=== PATIENT | male | born 1975 | race Caucasian/White ===

== ENCOUNTER 2019-09-01 17:39 | Emergency (ER) | payer OTHER, SELFPAY ==
--- NOTE | 2019-09-01 17:45 | ED.UPPEXIN ---
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 Patient states he sustained a laceration to the tip of his left index finger a couple hours ago while using a shuttlecock feather trimmer. Symptoms are mild, worse with motion, better at rest, located at a V-shaped, distal based, superficial 1 cm flap laceration that seems well approximating, and he cleansed with peroxide. Patient denies weakness, decreased ROM, FB, numbness; he desires suture approximation. Reports a history of only nausea to Keflex, but ability to take penicillin in the past. Related Data Allergies Allergy/AdvReac Type Severity Reaction Status Date / Time cephalexin Allergy Intermediate Nausea and Verified 09/01/19 17:52 Vomiting Tetanus Vaccines and Toxoid Allergy Unknown Dizziness Verified 09/01/19 17:52 Review of Systems Review of Systems: Narrative: General/Constitutional: No weight loss,fever Eyes: N0: Redness,discharge Ears/Nose/Throat: No: Epistaxis,ear discharge Respiratory: Denies: Hemoptysis Gastrointestinal: No Vomiting, Bleeding-rectal Skin: No Lumps, eruption Neurologic: No Focal Weakness,Sz Hematologic: Denies: Petechiae/Purpura Psychiatric: No: Suicida ideationl All Other Systems: Reviewed and Negative [facility] Past Medical History Medical History (Updated 09/02/19 @ 00:00 by Kirstin Valles) Depression GERD (gastroesophageal reflux disease) Social History Social History Smoking status: Never smoker Alcohol intake: never Comments At time of signature, agree with nursing past medical, surgical, social and family history. There is no relevant family history pertinent to the presenting complaint Exam Narrative: Exam Narrative: General Appearance: Well appearing, , Conjunctiva clear Mouth/Throat: Normal appearing, Normal lips: Supple Respiratory: Airway patent, No respiratory distress MS finger : Normal strength (mostly intact, limited flexion/extension by pain), Tenderness ( distallly, with mild decreased ROM), Scant swelling (tuft diistally), Other (no anterior drawer, no collateral laxity Skin: Warm, Dry, superficial, 1 cm distal based, flap laceration of the tuft without nail involvement, distal to DIPJ Neurological: A&O x3, , Normal affect-sl anxious mood Course Vital Signs Vital signs: Vital Signs Temperature 97.9 F 09/01/19 17:48 Pulse Rate 93 09/01/19 17:48 Respiratory Rate 16 09/01/19 17:48 Blood Pressure 121/88 09/01/19 17:48 Pulse Oximetry 97 09/01/19 17:48 Temperature 97.9 F 09/01/19 17:48 Pulse Rate 93 09/01/19 17:48 Respiratory Rate 16 09/01/19 17:48 Blood Pressure 121/88 09/01/19 17:48 Pulse Oximetry 97 09/01/19 17:48 Procedures Laceration Laceration 1: Time: 18:06 Site: hand Side (If applicable): left Size (cm): 1 Description: flap Depth: simple, single layer Local Anesthetic: other anesthetic (topical LET ) Pre-repair: irrigated extensively ====== Skin Level ====== Skin layer closed with: nylon and dermabond Size (cm): 5-0 Number of sutures: 1 Technique: simple, interrupted ====== Subcutaneous Layer ====== ====== Muscle Layer ====== ====== Tendon Layer ====== Discharge Plan Discharge Clinical Impression: Finger laceration Patient Disposition: Home, Self-Care Condition: Improved Instructions: Finger Laceration (ED) Additional Instructions: Remove 1 stitch in about a week Prescriptions: New cephalexin 250 mg/5 mL suspension for reconstitution 500 mg PO BID 3 Days Qty: 60 RF: 0
[2019-09-01 17:48] VITALS: BP 121/88; PULSE 93; RESP 16; TEMP 36.6; O2SAT 97
== END 2019-09-01 18:13 | disposition home or self-care (01) ==
PROVIDERS: Emergency Provider Emergency Medicine; PCP Internal Medicine
DX: S61.211A Laceration without foreign body of left index finger without damage to nail, initial encounter (principal); W29.3XXA Contact with powered garden and outdoor hand tools and machinery, initial encounter; K21.9 Gastro-esophageal reflux disease without esophagitis
CPT/HCPCS: 12001; 99213; G0463

== ENCOUNTER 2019-09-08 11:45 | Emergency (ER) | payer OTHER, SELFPAY ==
[2019-09-08 11:55] VITALS: BP 137/73; PULSE 90; RESP 20; TEMP 36.6; O2SAT 100
--- NOTE | 2019-09-08 12:16 | ED_ITS ---
HPI - Wound/Laceration General Chief Complaint: Wound/Laceration Stated Complaint: remove stitiches Source: patient and RN notes reviewed Mode of arrival: ambulatory Limitations: no limitations History of Present Illness HPI narrative: The patient presents for suture removal. Patient indicates he was here about a week ago received a single stitch to his left index finger, his tetanus was updated. No problems, he has some mild edema without redness /discharge/ numbness/pain. Related Data Home Medications Medication Instructions Recorded Confirmed No Home Medications 09/08/19 09/08/19 Allergies Allergy/AdvReac Type Severity Reaction Status Date / Time cephalexin Allergy Intermediate Nausea and Verified 09/01/19 17:52 Vomiting Tetanus Vaccines and Toxoid Allergy Unknown Dizziness Verified 09/01/19 17:52 Review of Systems Review of Systems: Narrative: General/Constitutional: No weight loss,fever Respiratory: Denies: Hemoptysis Skin: No Lumps, eruption Neurologic: No Focal Weakness,Sz Hematologic: Denies: Petechiae/Purpura All Other Systems: Reviewed and Negative [facility] Past Medical History Medical History (Updated 09/08/19 @ 12:06 by Flako Askew MD) Depression GERD (gastroesophageal reflux disease) Social History Social History Smoking status: Never smoker Alcohol intake: never Gender identity (if verbalized by the patient): Male Comments At time of signature, agree with nursing past medical, surgical, social and family history. There is no relevant family history pertinent to the presenting complaint Exam Narrative: Exam Narrative: General Appearance: Well appearing, Well nourished, No distress Respiratory: Airway patent, No respiratory distress Skin: Warm, Dry, well healing and approximated laceration with only mild/minimal decreased ROM and strength Neurological: A&O x3, Normal affect Course Vital Signs Vital signs: Vital Signs Temperature 97.8 F 09/08/19 11:55 Pulse Rate 90 09/08/19 11:55 Respiratory Rate 09/08/19 11:55 Blood Pressure 137/73 09/08/19 11:55 Pulse Oximetry 100 09/08/19 11:55 Temperature 97.8 F 09/08/19 11:55 Pulse Rate 90 09/08/19 11:55 Respiratory Rate 09/08/19 11:55 Blood Pressure 137/73 09/08/19 11:55 Pulse Oximetry 100 09/08/19 11:55 Discharge Plan Discharge Clinical Impression: Visit for suture removal, Encounter for post-traumatic wound check Patient Disposition: Home, Self-Care Condition: Stable Instructions: Antibiotic Form Prescriptions: No Action No Home Medications RF: 0 Interventions: Discharge Disposition Last Done: 09/08/19 12:06 Follow-up/Referrals: Raheem Perez DO [Primary Care Provider] - Discharge Date/Time: 09/08/19 12:07
== END 2019-09-08 12:07 | disposition home or self-care (01) ==
PROVIDERS: Emergency Provider Emergency Medicine; PCP Internal Medicine
DX: Z48.02 Encounter for removal of sutures (principal)
CPT/HCPCS: 99211; G0463

== ENCOUNTER 2019-11-28 09:26 | Emergency (ER) | payer OTHER, SELFPAY ==
[2019-11-28 09:30] VITALS: BP 151/81; PULSE 89; RESP 12; TEMP 36.6; O2SAT 98
--- NOTE | 2019-11-28 09:44 | ED.EAR ---
HPI - Ear Problem General Chief complaint: Ear Stated complaint: ear clogged Time Seen by Provider: 11/28/19 09:34 Source: patient and RN notes reviewed Mode of arrival: ambulatory Limitations: no limitations History of Present Illness MD Complaint: other (Ear fullness) Location: left ear Related Data Home Medications Medication Instructions Recorded Confirmed No Home Medications 09/08/19 11/28/19 Allergies Allergy/AdvReac Type Severity Reaction Status Date / Time cephalexin Allergy Intermediate Nausea and Verified 11/28/19 09:30 Vomiting Tetanus Vaccines and Toxoid Allergy Unknown Dizziness Verified 11/28/19 09:30 Review of Systems Review of Systems: Narrative: CONSTITUTIONAL: Denies malaise, chills, sweats, or fever. EYES: Denies visual changes, redness, or discharge. ENT: Denies rhinorrhea, congestion, sinus pain, otalgia or sore throat. Reports left ear fullness, feeling of being clogged CARDIOVASCULAR: Denies chest pain, palpitations, or edema. RESPIRATORY: Denies cough or dyspnea. SKIN: Denies rash or itching. MUSCULOSKELETAL: Denies myalgia. NEUROLOGIC: Denies headache. All systems reviewed & are unremarkable except as noted in HPI and below PMFSH Past Medical History Medical History (Updated 11/28/19 @ 10:04 by Geovanna Lee NP) Depression GERD (gastroesophageal reflux disease) Family History Family History Mother Patient's mother is in good health Father Patient's father is in good health Social History Social History Smoking status: Never smoker Alcohol intake: never Gender identity (if verbalized by the patient): Male Comments At time of signature, agree with nursing past medical, surgical, social and family history. There is no relevant family history pertinent to the presenting complaint Exam Narrative: Exam Narrative: GENERAL: Well-appearing, well-nourished, and in no acute distress. HEAD: Normocephalic, atraumatic. EYES: PERRLA, conjunctivae clear, and EOMI. No nystagmus. ENT: Mucous membranes moist. TM not visible due to excess cerumen bilaterally; no tragal tenderness. NECK: Supple. CHEST: No respiratory distress. Speaks in full sentences. HEART: Regular rate and rhythm. SKIN: Warm, dry, no rash. NEURO: Alert and oriented x3. PSYCH: Normal mood and affect Course Course Emergency Course: Discussed with patient risks of cerumen disimpaction, including possible tympanic membrane rupture. Patient verbalizes understanding of these risks and chooses to proceed with procedure. Patient is aware of diagnosis, understands and agrees to treatment plan. Anticipatory guidance given. Patient agrees to follow-up as directed and is aware of reasons to seek care at the emergency department. Portions of this record may have been created with voice recognition software Vital Signs Vital signs: Vital Signs Temperature 97.9 F 11/28/19 09:30 Pulse Rate 89 11/28/19 09:30 Respiratory Rate 12 11/28/19 09:30 Blood Pressure 151/81 H 11/28/19 09:30 Pulse Oximetry 98 11/28/19 09:30 Temperature 97.9 F 11/28/19 09:30 Pulse Rate 89 11/28/19 09:30 Respiratory Rate 12 11/28/19 09:30 Blood Pressure 151/81 H 11/28/19 09:30 Pulse Oximetry 98 11/28/19 09:30 Reviewed. Procedures Ear Wax Removal Left Ear: Ear Wax Removal Date: 11/28/19 Ear Wax Removal Time: 09:44 Cerumenolytic Used: 5-10% Sodium Bicarb solution TM Examination: TM(s) intact, normal appearance Ear Canal Exam: atraumatic Patient Tolerated Procedure: well Complications: no problems Right Ear: Ear Wax Removal Date: 11/28/19 Ear Wax Removal Time: 09:58 Cerumenolytic Used: 5-10% Sodium Bicarb solution Results: Re-examined: cerumen removed completely TM Examination: TM(s) intact, normal appearance Ea
== END 2019-11-28 10:21 | disposition home or self-care (01) ==
PROVIDERS: Emergency Provider Nurse Practitioner; PCP Internal Medicine
DX: H61.23 Impacted cerumen, bilateral (principal); K21.9 Gastro-esophageal reflux disease without esophagitis
CPT/HCPCS: 69210; 99212; G0463

== ENCOUNTER 2020-11-03 10:47 | Emergency (ER) | payer OTHER, SELFPAY ==
[2020-11-03 10:55] VITALS: BP 146/94; PULSE 79; RESP 16; TEMP 36.9; O2SAT 98
--- NOTE | 2020-11-03 10:57 | ED.EXTPRO ---
HPI - Extremity Problem General Chief complaint: Extremity Problem,Nontraumatic Stated complaint: rt foot pain Time Seen by Provider: 11/03/20 10:55 Source: patient and RN notes reviewed Mode of arrival: ambulatory Limitations: no limitations History of Present Illness HPI Narrative: 45-year-old male presents to the [facility] with complaints of a sore spot to the plantar aspect right foot for the last 6 months. Has been picking at it no other treatment. Has not seen another provider for issues. Related Data Home Medications Medication Instructions Recorded Confirmed No Home Medications 09/08/19 11/28/19 Allergies Allergy/AdvReac Type Severity Reaction Status Date / Time cephalexin Allergy Intermediate Nausea and Verified 11/28/19 09:30 Vomiting Tetanus Vaccines and Toxoid Allergy Unknown Dizziness Verified 11/28/19 09:30 Review of Systems Review of Systems: All systems reviewed & are unremarkable except as noted in HPI and below Constitutional: Constitutional: Reports no additional constitutional complaints, Denies chills and Denies fever(s) Eyes: Eyes: Reports no additional eye complaints ENT: Reports system reviewed and no additional complaints, except as documented Cardiovascular: Cardiovascular: Reports no additional cardiovascular complaints Respiratory: Respiratory: Reports no additional respiratory complaints Musculoskeletal: Musculoskeletal: Reports no additional musculoskeletal complaints Integumentary/Breasts: Skin/Breast: Reports as per HPI Comments: Sore area plantar aspect right foot Neurologic: Reports system reviewed and no additional complaints, except as documented Psychiatric: Psychiatric: Reports no additional psychiatric complaints Allergic/Immunologic: Allergic/Immunologic: Reports no additional allergic/immunologic complaints PMFSH Past Medical History Medical History (Updated 11/03/20 @ 11:01 by Geovanna Palencia) Depression GERD (gastroesophageal reflux disease) Family History Family History Mother Patient's mother is in good health Father Patient's father is in good health Social History Social History Smoking status: Never smoker Alcohol intake: never Gender identity (if verbalized by the patient): Male Comments At the time of my signature, I reviewed and agree with the nursing past medical, surgical, social, and family history. There is no relevant family history pertinent to the patient complaint. Exam Const: General: healthy appearing, no acute distress and alert Nutritional Appearance: well nourished Orientation/consciousness: patient oriented x3 Limitations: no limitations HENMT: Head: normal to inspection Eyes: Pupils: Equal, round and reactive pupils present Neck: Neck: normal visual inspection, no lymphadenopathy and no meningeal signs Chest: Chest palpation & inspection: normal inspection of the chest Resp: Effort & Inspection: normal respiratory effort Cardio: Rate: regular rate Rhythm: regular rhythm Back/Spine/Pelvis: Back: no CVA tenderness Skin: General skin exam: normal color Neuro: General: patient oriented x3, moves all extremities, no meningeal signs and no focal motor deficits Speech: normal speech Gait exam (Neuro): Normal gait present Extrem: Ankle/foot/toe images: 1. 0.5 cm area without redness or signs of infection. Tender to touch. Circular, ball-like area under skin with dry skin covering. Psych: Appearance: grossly normal and well kempt Mental Status: mental status grossly normal Affect: normal affect Attitude: cooperative Thought content: Yes Normal thought content present Course Course Emergency Course: Discharge instructions reviewed with patient, as well as provided in writing per nursing staff. The instructions also include specific and strict return/GO TO THE ER as well as f/u information. All q
== END 2020-11-03 11:11 | disposition home or self-care (01) ==
PROVIDERS: Emergency Provider Nurse Practitioner; PCP Internal Medicine
DX: B07.0 Plantar wart (principal); K21.9 Gastro-esophageal reflux disease without esophagitis
CPT/HCPCS: 99212; G0463

== ENCOUNTER 2022-04-25 10:00 | Outpatient (CLI) | payer OTHER, SELFPAY ==
[2022-04-25 20:13] LABS: Hematocrit 51.1 % (42.0-52.0); Hemoglobin 16.6 g/dL (14.0-18.0); Mean Corpuscular HGB Conc 32.5 g/dl (32-36); Mean Corpuscular Hemoglobin 29.9 pg (26-34); Mean Corpuscular Volume 92.1 fl (80-100); Mean Platelet Volume 11.4 fl (7.4-10.4); Platelet Count Result 208 k/mm3 (150-375); Red Blood Count 5.55 M/mm3 (4.6-6.20); White Blood Count 5.1 K/mm3 (4.5-10.0)
[2022-04-25 21:07] LABS: Alanine Aminotransferase 35 U/L (6-50); Albumin Level 4.7 g/dL (3.5-5.1); Alkaline Phosphatase 66 U/L (38-126); Anion Gap 8 mmol/L (8-16); Aspartate Amino Transferase 25 U/L (17-59); Bilirubin,Total 0.5 mg/dL (0.2-1.3); Blood Urea Nitrogen 17 mg/dL (9-20); Calcium 9.6 mg/dL (8.4-10.2); Carbon Dioxide 28 mmol/L (22-30); Chloride 103 mmol/L (98-107); Cholesterol 215 mg/dL (0-200); Estimated Glomerular Filt Rate > 60; Glucose 96 mg/dL (65-110); HDL Direct 44 mg/dL; Sodium 139 mmol/L (137-145); Triglycerides 185 mg/dL (<150)
[2022-04-25 21:18] LABS: LDL Cholesterol Direct 132 mg/dL
[2022-04-25 21:46] LABS: Band Neutrophils Percent 3 % (0-6); Eosinophils Percent Manual 2 % (0-4); Lymphocytes Absolute Manual 1.17 K/mm3 (1.1-4.5); Monocytes Absolute Manual 0.71 K/mm3 (0.1-0.90); Monocytes Percent Manual 14 % (3-9); Neutrophils Absolute Manual 3.11 K/mm3 (1.3-6.7); Neutrophils Percent Manual 58 % (46-73); Total Cells Counted 100
[2022-04-25 21:47] LABS: Platelet Estimate Adequate (Adequate); Schistocytes None Seen (NORMAL)
== END 2022-04-25 10:01 | disposition home or self-care (01) ==
LOC: ANHGOSHLAB 10:01
PROVIDERS: PCP Internal Medicine; Visit Provider Clinical Nurse Specialist
DX: Z13.220 Encounter for screening for lipoid disorders (principal); Z13.228 Encounter for screening for other metabolic disorders
CPT/HCPCS: 36415; 80053; 80061; 85025

== ENCOUNTER 2022-06-17 12:31 | Outpatient (CLI) | payer OTHER, SELFPAY ==
[2022-06-21 15:39] LABS: NIL 0.02 IU/mL; Quantiferon TB Plus, 1T NEGATIVE (NEGATIVE); TB1-NIL <0.00 IU/mL; TB2-NIL <0.00 IU/mL
== END 2022-06-17 12:32 | disposition home or self-care (01) ==
LOC: ANHGOSHLAB 12:34
PROVIDERS: PCP Internal Medicine; Visit Provider Clinical Nurse Specialist
DX: Z11.1 Encounter for screening for respiratory tuberculosis (principal)
CPT/HCPCS: 36415; 86480

== ENCOUNTER 2022-12-20 12:48 | Emergency (ER) | payer OTHER, SELFPAY ==
--- NOTE | ~2022-12-20 | US_ITS ---
US venous doppler UE LT DATE: 12/20/2022 15:20 INDICATION: Arm pain TECHNIQUE: Real time and color flow imaging and doppler analysis of the left upper extremity veins COMPARISON: None FINDINGS: There is normal flow in the left internal jugular, subclavian, axillary, brachial, basilic, cephalic, radial and ulnar veins, with normal compression where applicable. IMPRESSION: No evidence of deep venous thrombosis of left upper extremity Reviewed, dictated and finalized at [facility]. Reviewed, dictated and finalized at [facility]. LAINT MANAGER
[2022-12-20 12:50] VITALS: BP 144/90; PULSE 98; RESP 18; TEMP 36.6; O2SAT 100
--- NOTE | 2022-12-20 14:42 | ED.GENADULT ---
HPI - General Adult General Chief complaint: Extremity Problem,Nontraumatic Stated complaint: left arm pain Time Seen by Provider: 12/20/22 16:13 History of Present Illness HPI narrative: Herbie Almanzar is a 47 y/o male with no PMhx who presents with reports of pain to his left arm that he noticed about 5 days ago. He states he noticed it when he woke up and pain is improved with rest and then pain returns with movement, denies any known trauma/injury/heavy lifting. distal pulses present Related Data Allergies Allergy/AdvReac Type Severity Reaction Status Date / Time cephalexin AdvReac Intermediate Nausea and Verified 12/20/22 14:46 Vomiting Tetanus Vaccines and Toxoid AdvReac Unknown Dizziness Verified 12/20/22 14:46 [facility] Past Medical History Medical History Depression GERD (gastroesophageal reflux disease) Family History Family History Mother Patient's mother is in good health Father Patient's father is in good health Social History Social History (Updated 04/27/22 @ 10:54 by Jody Ro CMA) Smoking status: Never smoker Alcohol intake: never Lack of Transportation: No Lack of Food: Never True Current Housing: I Have Housing Concerned About Future Housing: No Difficulty Paying Gas/Electric Bills: No Difficulty Paying for Meds: No Currently Unemployed: No Education: Associate Degree Difficulty w/ Childcare or Family Care: No Gender identity (if verbalized by the patient): Male Course Vital Signs Vital signs: Vital Signs Temperature 36.6 C 12/20/22 12:50 Pulse Rate 98 12/20/22 12:50 Respiratory Rate 18 12/20/22 12:50 Blood Pressure 144/90 H 12/20/22 12:50 Pulse Oximetry 100 12/20/22 12:50 Temperature 36.6 C 12/20/22 12:50 Pulse Rate 98 12/20/22 12:50 Respiratory Rate 18 12/20/22 12:50 Blood Pressure 144/90 H 12/20/22 12:50 Pulse Oximetry 100 12/20/22 12:50 Medical Decision Making Vital Signs Vital Signs: Vital Signs Temperature 36.6 C 12/20/22 12:50 Pulse Rate 98 12/20/22 12:50 Respiratory Rate 18 12/20/22 12:50 Blood Pressure 144/90 H 12/20/22 12:50 Pulse Oximetry 100 12/20/22 12:50 Temperature 36.6 C 12/20/22 12:50 Pulse Rate 98 12/20/22 12:50 Respiratory Rate 18 12/20/22 12:50 Blood Pressure 144/90 H 12/20/22 12:50 Pulse Oximetry 100 12/20/22 12:50 Discharge Plan Discharge Clinical Impression: Muscle strain, Muscle strain of left upper arm Patient Disposition: Home, Self-Care Condition: Stable Instructions: Antibiotic Form Additional Instructions: Continue to take the Naproxen twice a day Continue to wear the tanya wrap/ rest and ice your arm Follow up with your PCP in 1 week Return to the ED for any worsening symptoms or concerns. Prescriptions: New naproxen 500 mg tablet 500 mg PO BID Qty: 28 0RF No Action sodium,potassium,mag sulfates [Suprep Bowel Prep Kit] 17.5-3.13-1.6 gram recon soln See Rx Instructions PO .COMPLEX Qty: 354 0RF Rx Instructions: TAKE DIRECTED Follow-up/Referrals: Raheem Perez DO [Physician] - 1 Week Time of Disposition: 16:14
[2022-12-20] MEDS: NAPROXEN 500 MG TABLET PO (16:11)
[2022-12-20 16:14] VITALS: BP 146/99; PULSE 89; RESP 15; O2SAT 98
== END 2022-12-20 16:19 | disposition home or self-care (01) ==
PROVIDERS: Emergency Provider Nurse Practitioner Family
DX: S46.812A Strain of other muscles, fascia and tendons at shoulder and upper arm level, left arm, initial encounter (principal); X58.XXXA Exposure to other specified factors, initial encounter
CPT/HCPCS: 93971; 99284; A9270

== ENCOUNTER 2023-09-04 14:56 | Outpatient (CLI) | payer OTHER, SELFPAY ==
[2023-09-04 18:51] LABS: Basophils Absolute Auto 0.1 K/mm3 (0.0-0.1); Basophils Percent Auto 1.1 % (0.2-1.2); Eosinophils Absolute Auto 0.2 K/mm3 (0-0.3); Eosinophils Percent Auto 2.3 % (0-4.4); Hematocrit 50.3 % (42.0-52.0); Hemoglobin 16.6 g/dL (14.0-18.0); Immature Granulocyte Absolute 0.02 K/mm3 (0.00-0.031); Immature Granulocyte Percent A 0.3 % (0-0.5); Lymphocytes Absolute Auto 1.84 K/mm3 (0.9-3.2); Lymphocytes Percent Auto 28.1 % (18.3-44.2); Mean Corpuscular Volume 90.8 fl (80-100); Mean Platelet Volume 11.3 fl (7.4-10.4); Monocytes Absolute Auto 0.6 K/mm3 (0.1-0.6); Monocytes Percent Auto 9.6 % (2.6-8.5); Neutrophils Absolute Auto 3.8 K/mm3 (1.3-6.7); Neutrophils Percent Auto 58.6 % (45.5-73.1); Platelet Count Result 214 k/mm3 (150-375); Red Blood Count 5.54 M/mm3 (4.6-6.20); Red Cell Distribution Width 12.3 % (11.5-14.5); White Blood Count 6.6 K/mm3 (4.5-10.0)
[2023-09-04 19:02] LABS: Alanine Aminotransferase 29 U/L (6-50); Albumin Level 4.7 g/dL (3.5-5.1); Alkaline Phosphatase 54 U/L (38-126); Anion Gap 10 mmol/L (4-12); Aspartate Amino Transferase 37 U/L (17-59); Bilirubin,Total 0.6 mg/dL (0.2-1.3); Blood Urea Nitrogen 14 mg/dL (9-20); Calcium 9.7 mg/dL (8.4-10.2); Carbon Dioxide 30 mmol/L (22-30); Chloride 99 mmol/L (98-107); Cholesterol 235 mg/dL (0-200); Estimated Glomerular Filt Rate > 60; Glucose 95 mg/dL (65-110); HDL Direct 52 mg/dL; Potassium 4.5 mmol/L (3.4-5.0); Sodium 139 mmol/L (137-145); Triglycerides 136 mg/dL (<150)
[2023-09-04 19:13] LABS: LDL Cholesterol Direct 143 mg/dL
[2023-09-06 18:28] LABS: NIL 0.02 IU/mL; Quantiferon TB Plus, 1T NEGATIVE (NEGATIVE); TB2-NIL <0.00 IU/mL
== END 2023-09-04 14:57 | disposition home or self-care (01) ==
LOC: ANHGOSHLAB 14:57
PROVIDERS: PCP Internal Medicine; Visit Provider Clinical Nurse Specialist
DX: Z11.1 Encounter for screening for respiratory tuberculosis (principal); Z13.220 Encounter for screening for lipoid disorders; Z13.228 Encounter for screening for other metabolic disorders
CPT/HCPCS: 36415; 80053; 80061; 85025; 86480

== ENCOUNTER 2024-03-12 08:32 | Emergency (ER) | payer OTHER, SELFPAY ==
--- NOTE | 2024-03-12 09:04 | ED.NAVMDI ---
HPI - Nausea/Vomiting/Diarrhea General Stated complaint: Diarrhea/Cough/Bodyaches Time Seen by Provider: 03/12/24 09:04 Source: patient Mode of arrival: ambulatory Limitations: no limitations History of Present Illness HPI Narrative: Herbie is a 48-year-old male patient presenting to the clinic today with complaints of cough, diarrhea, and body aches x3 days. He denies any known fever. He denies any shortness of breath or chest pain. 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 Denies any blood in his stools or any abdominal pain Related Data Home Medications ?Medication ?Instructions ?Recorded ?Confirmed ?Last Taken ?Type No Home Medications 09/04/23 03/12/24 Unknown History Allergies Allergy/AdvReac Type Severity Reaction Status Date / Time cephalexin AdvReac Intermediate Nausea and Verified 03/12/24 08:39 Vomiting Tetanus Vaccines and Toxoid AdvReac Unknown Dizziness Verified 03/12/24 08:39 Review of Systems Review of Systems: Pertinent positives per HPI. Patient denies any fever, chills, rash, headache, visual changes, dizziness, shortness of breath, chest pain, palpitations, nausea, vomiting, constipation, abdominal pain, or any urinary issues. [facility] Past Medical History Medical History Depression GERD (gastroesophageal reflux disease) Family History Family History Mother Patient's mother is in good health Father Patient's father is in good health Social History Social History Smoking status: Never smoker Alcohol intake: never Lack of Transportation: No Lack of Food: Never True Current Housing: I Have Housing Concerned About Future Housing: No Difficulty Paying Gas/Electric Bills: No Difficulty Paying for Meds: No Currently Unemployed: No Education: Associate Degree Difficulty w/ Childcare or Family Care: No Gender identity (if verbalized by the patient): Male Comments At the time of my signature, I reviewed and agree with the nursing past medical, surgical, social, and family history. There is no relevant family history pertinent to the patient complaint. Exam Narrative: General: Well-developed, well nourished, in no apparent distress Head: Normocephalic, atraumatic Eyes: Pupils equally round and reactive to light bilaterally, EOM intact, sclera and conjunctive clear, no discharge, lids normal Ears: TMs intact and clear, ear canals clear, no drainage, grossly hearing normal. Nose: Nares patent, no discharge, no inflammation, no sinus tenderness. Mouth: Oral pharynx without lesions or masses, good dentition, MMM. Neck: Supple, trachea midline, no enlargement of anterior or posterior cervical nodes, no thyroid masses or goiter palpable. Cardio: Regular rate and rhythm, s1 and s2 normal, no murmur appreciated. Resp: Clear to auscultation bilaterally, no rhonchi, rales, wheezing or rubs Course Course Emergency Course: Portions of this record may have been created with voice recognition software. Level of Care: Express Care Visit Vital Signs Vital signs: Vital signs reviewed MDM - Nausea/Vomiting/Diarrhea MDM Narrative Medical decision making narrative: At the time of visit patient is resting comfortably on the exam table. Patient appears to be nontoxic. Labs: Influenza test was positive for influenza A Plan: Patient has influenza A. Supportive measures were discussed with the patient and they voiced understanding discharge instructions and agrees to treatment plan. Return precautions reviewed Differential Diagnosis Differential diagnosis: Likely traveler's diarrhea, food poisoning, gastroenteritis, clostridium difficile infection, drug-induced nausea and vomiting, dehydration and other (Influenza) Discharge Plan Discharge Clinical Impression: Influenza A Patient Disposition: Home, Self-Care Condition: Stable Instructions: Antibiotic Form, Influenza (ED) Additional Instructions: May take DayQuil/NyQuil for cold/flu symptoms May take Imodium as needed for diarrhea as long as there is no blood in your stool Increase fluids and stay well hydrated Tylenol/motrin for pain/fever Flonase and OTC antihistamines as directed Vicks vapor rub to open sinuses Sinus rinses for congestion Cepacol spray, cough drops, throat lozenges, warm tea with honey/lemon, gargle salt water to soothe throat BRAT diet for diarrhea Clear liquids x 24 hours then advance as tolerated for nausea/vomiting Go to the ED if you develop a worsening in your condition- high fever not controlled by Tylenol or Motrin, dehydration, weakness, lethargy, shortness of breath, or chest pain. Follow up with your PCP in 3-5 days if symptoms persist. Patient Language: Tajik Prescriptions: No Action No Home Medications Follow-up/Referrals: Raheem Perez, [Primary Care Provider] - Stand Alone Forms: Work/School Release IP Time of Disposition: 09:10 Quality NIHSS Nursing Documentation ED NIHSS nursing documentation: reviewed/agree
[2024-03-12 09:06] VITALS: BP 138/88; PULSE 98; RESP 16; TEMP 37.3; O2SAT 97
[2024-03-12 09:20] LABS: EDINFLUASCREEN Positive (Negative); EDINFLUBSCREEN Negative (Negative)
== END 2024-03-12 09:16 | disposition home or self-care (01) ==
PROVIDERS: Emergency Provider Nurse Practitioner Family; PCP Internal Medicine
DX: J10.1 Influenza due to other identified influenza virus with other respiratory manifestations (principal); K21.9 Gastro-esophageal reflux disease without esophagitis
CPT/HCPCS: 87804; 99212; G0463

== ENCOUNTER 2024-11-14 08:06 | Outpatient (CLI) | payer OTHER, SELFPAY ==
--- NOTE | 2024-12-03 14:06 | WPDHOMESLEEP ---
Sleep Study - Home Unattended Date of Study: 11/14/24 Ordering Provider: Vickie Shin APRN Interpreting Provider: Betty Causey, DO Home Sleep Study Type: Watch PAT Height: 1.78 m Weight: 81.647 kg Body Mass Index: 25.8 Neck Circumference (inches): 15 Homer: 9 Reason for Sleep Study snoring, witnessed apneas Sleep History The patient is a 49-year-old male that had a sleep study ordered by his primary care for evaluation of sleep apnea. He frequently awakens from sleep short of breath. He frequently awakens at night with heartburn, belching or cough. He frequently snores and is frequently loud enough that others complain. He occasionally has trouble sleeping when he has a cold. He frequently wakes up gasping for air throughout the night. He frequently has breathing problems at night. He rarely sweats excessively at night. He rarely has heart palpitations or irregular heartbeats during the night. He rarely falls asleep during the day and never falls asleep while driving. He denies sleep paralysis and cataplexy. He occasionally has trouble at school or work due to sleepiness. He occasionally experiences vivid dreamlike scenes upon awakening or falling asleep. He denies feeling afraid of going to sleep. He rarely has nightmares. He rarely remembers his dreams. He occasionally has thoughts racing through his mind. He denies feeling sad or depressed. He rarely has anxiety. He frequently has muscular tension. He constantly notices parts of his body jerk. He occasionally kicks during the night. He rarely has crawling and aching feelings in his legs but occasionally has leg pain during the night. He constantly grinds his teeth during sleep and constantly awakens with morning jaw pain. He is frequently bothered by pain during the day and frequently awakened by pain during the night. He frequently wakes up feeling stiff in the morning. He frequently wakes up with sore or achy muscles. He frequently wakes up with pain in the neck, spine and other joints. He goes to bed at 10:00 p.m. on weekdays and at midnight on the weekends. It takes him 1-2 hours to fall asleep. He wakes up 3-5 times throughout the night for unknown reasons and it can take him up to an hour to fall back asleep. He wakes up at 6:00 a.m. on weekdays and 8:00 a.m. on the weekends. He typically gets 4-5 hours of sleep per night. He currently lives with his son. He denies consuming any caffeinated beverages within 2 hours of bedtime. He denies engaging in physical exercise before bedtime. He will watch television before falling asleep. He denies taking naps in the afternoon or the evening. He consumes 2-4 caffeinated beverages per day. He denies tobacco, alcohol and recreational drug use. [facility] Past Medical History Medical History Depression GERD (gastroesophageal reflux disease) Family History Family History Mother Patient's mother is in good health Father Patient's father is in good health Social History Social History Smoking status: Never smoker Alcohol intake: never Lack of Transportation: No Lack of Food: Never True Current Housing: I Have Housing Concerned About Future Housing: No Difficulty Paying Gas/Electric Bills: No Difficulty Paying for Meds: No Currently Unemployed: No Education: Associate Degree Difficulty w/ Childcare or Family Care: No Gender identity (if verbalized by the patient): Male Medications Home Medications ?Medication ?Instructions ?Recorded ?Confirmed ?Type albuterol sulfate 90 mcg/actuation 1 puff inhalation Q4H PRN 10/31/24 10/31/24 Rx aerosol inhaler shortness of breath or wheezing #8.5 grams Sleep Procedure The sleep study was completed using CubbyT a technically adequate device with seven channels: peripheral arterial tone, actigraphy, body position, snore, respiratory movement, pulse oximetry, sleep staging, and heart rate. Prior to using the device, the patient received verbal and written instructions for its application and was provided with the help desk phone number for additional telephonic instruction with 24-hour availability of qualified personnel to answer questions. The study was scored using CMS guidelines. Sleep Architecture The total recording time is 6 hrs, 48 min. The total sleep time is 5 hrs, 30 min. Sleep latency is 17 minutes. REM latency is 246 minutes. The patient had 11 episodes of waking. Sleep architecture shows 19.5% deep sleep, 69.5% light sleep, and (as % Total Sleep Time) showed NREM (Light 69.5%; Deep 19.5%), and a 10.9% stage REM. The patient spent 11.4% of total sleep time in the supine position. Sleep efficiency was 80.88. Respiratory Analysis The overall AHI (pAHI 4%:) is 11.9. The overall AHI (pAHI 3%:) is 16.6. The central AHI is 0.4. The AHI was 13.6 in NREM and 40.7 in REM sleep. The AHI was 27.4 in Supine and 15.2 in Non-supine sleep. Percent of Castillo May respirations is 0.0. Oximetry Data The oxygen desaturation index (CARLEY 4%:) is 6.1. The mean saturation is 93%, and the lowest saturation is 90%. Time spent with saturation < 88% is 0.0 minutes. Snoring Profile Snoring average intensity is 42 dB. The patient snored above 45 decibels for 31.0 minutes, 9.4% of sleep time. Cardiac Profile The average pulse rate is 69 beats per minutes. The lowest pulse rate is 47 bpm. The highest pulse rate reported is 105 bpm. Atrial fibrillation was not detected. Premature beats occur <0.1 per minute. Assessment and Plan Assessment and Plan (1) MAI (obstructive sleep apnea): Code(s): G47.33 - Obstructive sleep apnea (adult) (pediatric) Status: Acute Assessment and Plan: The patient had an overall AHI of 11.9 with desaturation down to 90%. This is consistent with mild sleep apnea. Due to the patient's depression, he qualifies for treatment. I recommend that the patient be prescribed AutoPAP 5-15 cm H2O, CPAP mask/filters/tubing and heated humidity. A mandibular advancement device is also an acceptable treatment option. This should be used with all episodes of sleep.? Compliance should be reviewed within 31-90 days of starting therapy for usage greater than 4 hours per night greater than 70% of the nights. The patient should be asked about symptoms such as?excessive daytime sleepiness, quality of sleep, decreased nocturia, increased?mental functioning such as memory, mood, and concentration. The patient's sleep history is somewhat suggestive of Restless Leg Syndrome. I recommend that the patient have a serum ferritin drawn for evaluation of iron deficiency anemia. If the patient has a serum ferritin less than 75 ng/mL, I recommend starting a daily iron supplement and a Vitamin C supplement for better absorption. If the serum ferritin is greater than 75 ng/mL, I recommend starting a dopamine agonist and titrating the dose until symptoms resolve. There are nonpharmacological methods to treat limb movements including daily exercise, stretching calf muscles before bed, avoiding excessive amounts of caffeine and alcohol, vitamin B supplementation, magnesium lotion massaged into legs before bed, and use of a weighted blanket. Data The data obtained during this sleep study is adequate for interpretation. Certification This sleep study has been reviewed by a board certified sleep medicine physician.
[2024-12-03 14:08] VITALS: BMI 25.8
== END 2024-11-15 13:25 | disposition home or self-care (01) ==
PROVIDERS: PCP Internal Medicine; Visit Provider Clinical Nurse Specialist
DX: G47.10 Hypersomnia, unspecified (principal); G47.33 Obstructive sleep apnea (adult) (pediatric)
CPT/HCPCS: 95800

== ENCOUNTER 2024-11-26 10:59 | Outpatient (CLI) | payer OTHER, SELFPAY ==
[2024-11-26 19:07] LABS: Hematocrit 47.9 % (42.0-52.0); Hemoglobin 14.6 g/dL (14.0-18.0); Immature Granulocyte Percent A 0.3 % (0-0.5); Lymphocytes Absolute Auto 1.55 K/mm3 (0.9-3.2); Mean Corpuscular HGB Conc 30.5 g/dl (32-36); Mean Corpuscular Hemoglobin 27.1 pg (26-34); Mean Corpuscular Volume 89.0 fl (80-100); Nucleated Red Blood Cells Absolute Auto 0.000 K/mm3 (0.0-0.012); Nucleated Red Blood Cells Perc 0.0 % (0.0-0.2); Platelet Count Result 256 k/mm3 (150-375); Red Blood Count 5.38 M/mm3 (4.6-6.20); White Blood Count 6.7 K/mm3 (4.5-10.0)
[2024-11-26 19:26] LABS: Alanine Aminotransferase 40 U/L (6-50); Albumin Level 4.6 g/dL (3.5-5.1); Alkaline Phosphatase 78 U/L (38-126); Anion Gap 9 mmol/L (4-12); Aspartate Amino Transferase 78 U/L (17-59); Bilirubin,Total 0.5 mg/dL (0.2-1.3); Blood Urea Nitrogen 15 mg/dL (9-20); Calcium 9.5 mg/dL (8.4-10.2); Carbon Dioxide 28 mmol/L (22-30); Chloride 103 mmol/L (98-107); Cholesterol 239 mg/dL (0-200); Estimated Glomerular Filt Rate > 60; Glucose 79 mg/dL (65-110); HDL Direct 46 mg/dL; Potassium 4.3 mmol/L (3.4-5.0); Sodium 140 mmol/L (137-145); Total Protein 8.1 g/dL (6.3-8.2); Triglycerides 141 mg/dL (<150)
[2024-11-26 20:51] LABS: Hemoglobin A1C 5.5 % (<5.7)
== END 2024-11-26 11:00 | disposition home or self-care (01) ==
LOC: ANHGOSHLAB 10:59
PROVIDERS: PCP Internal Medicine; Visit Provider Clinical Nurse Specialist
DX: Z13.228 Encounter for screening for other metabolic disorders (principal); Z13.220 Encounter for screening for lipoid disorders; R73.01 Impaired fasting glucose
CPT/HCPCS: 36415; 80053; 80061; 83036; 85025

== ENCOUNTER 2024-11-28 10:36 | Outpatient (CLI) | payer OTHER, SELFPAY ==
--- OUTSIDE RECORDS SUMMARY | 2024-11-28 11:39 | XMS_ITS | Clinical Summary ---
Author Organization [facility] Address [address] [place] [id number] Care Team Providers Care Weather Forecaster Name Role Phone Raheem Perez DO Primary Care Provider [phone] Social History Tobacco Use Types Packs/Day Years Used Date Smoking Tobacco: Never Assessed Sex and Gender Information Value Date Recorded Sex Assigned at Not on file Legal Sex Male 4:14 PM CDT Gender Identity Not on file Sexual Orientation Not on file Plan of Treatment Health Maintenance Due Date Last Done Comments Colorectal Cancer Screening Colonoscopy (10 Years) 1975 Annual Physical 07/03/1978 Hepatitis C 07/03/1993 DTaP, Tdap and Td Vaccines ( 1 - Tdap) 07/03/1994 Hepatitis B Vaccines (1 of 3 - 19+ 3-dose series) 07/03/1994 COVID-19 Vaccine ( - 2024-2 6 season) 2024 Influenza Adult (#1) 2024 12/26/2017, 12/05/2016, 11/11/2015 Hepatitis A Vaccines Aged Out No long er eligible based on patient's age to complete this topic Meningococcal B Vaccine Aged Out No l onger eligible based on patient's age to complete this topic Meningococcal Vaccine Aged Out No munir taylor eligible based on patient's age to complete this topic Pneumococcal Vaccine: Pediatrics (0 to 5 Years) and At-Risk Patients (6 to 49 Years) Aged Out No longer eligible b ased on patient's age to complete this topic RSV Immunizations Under 20 Months Aged Out No longer eligible b ased on patient's age to complete this topic Care Teams Weather Forecaster Relationship Specialty Start Date End Date Raheem Perez DO [address] [place] [address] PCP - General 02/23/16
--- OUTSIDE RECORDS SUMMARY | 2024-11-28 11:40 | XMS_ITS | Clinical Summary ---
Author Organization [facility] [address] Address [address] [place] [id number] Care Team Providers Care Jacquard Card Cutter Name Role Phone UrmilawonRaheem adams Primary Care Provider Allergies Active Allergy Reactions Criticality Noted Date Comments Cephalexin Unknown 03/15/2016 Tetanus Toxoid Unknown 03/15/2016 Medications fluticasone propionate (FLONASE) 50 mcg/actuation nasal sprayIndication s:Right acute serous otitis media, recurrence not specified Administer 2 sprays into each nostril daily for 14 days 1 each 3 Active Additional Information Patient not taking.Reported on 10/01/2022 Active Problems No known active problems Social History Tobacco Use Types Packs/Day Years Used Date Smoking Tobacco: Never Assessed Sex and Gender Information Value Date Recorded Sex Assigned at Not on file 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 Gender Identity Male 10/01/2022 11:00 AM CDT Sexual Orientation Straight 10/01/2022 11 :00 AM CDT Obstetrics History Last Filed Vital Signs Vital Sign Reading Time Taken Comments Blood Pressure 139/94 10/01/2022 12:00 PM CDT Pulse 88 10/01/2022 12:00 PM CDT Temperature 37.2 C (99 F) 10/01/2022 12:00 PM CDT Respiratory Rate 18 08/18/2022 4:46 PM CDT Oxygen Saturation 97% 10/01/2022 12:00 PM CDT Inhaled Oxygen Concentration - - Weight 78.3 kg (172 lb 9 oz) 10/01/2022 12:00 PM CDT Height 177.8 cm (5' 10) 10/01/2022 12:00 PM CDT Body Mass Index 24.76 10/01/2022 12:00 PM CDT Plan of Treatment Health Maintenance Due Date Last Done Comments Colon Cancer Screening-Colonoscopy 1975 Depression Screening 1975 Hepatitis C Screening 1975 Regular Well Visit/Exam 18-64 07/03/1993 Covid-19 Vaccine ( season) 2024 07/22/2022, 01/22/2021, 04/10/2020 Influenza Vaccine (#1) 2024 , 11/01/2020, 12/26/2017, Additional history exists DTaP/Tdap/Td Vaccine (2 - Td or Tdap) 04/22/2032 04/22/2022 Hepatitis B Screening Completed 06/20/2022, 023 Pneumococcal vaccine <65 Aged Out No longer eligible based on patient's age to complete this topic Insurance [facility] Care Teams Jacquard Card Cutter Relationship Specialty Start Date End Date Raheem Perez DO PCP - General Internal Medicine 10/01/22
--- OUTSIDE RECORDS SUMMARY | 2024-11-28 11:40 | XMS_ITS | Clinical Summary ---
Author Organization [facility] Address [address] [place] [address] Phone Care Team Providers Care Doorperson Name Role Phone Raheem Perez DO Primary Care Provider Allergies Active Allergy Reactions Criticality Noted Date Comments Cephalexin Unknown 03/15/2016 Tetanus Toxoid Unknown 03/15/2016 Medications cyclobenzaprine (FLEXERIL) 10 MG Tablet Take 10 mg by mouth 3 times daily as needed for Muscle spasms. Active QUEtiapine (SEROQUEL) 200 MG Tablet Take 200 mg by mouth nightly. Active QUEtiapine Fumarate (SEROQUEL) 50 MG Tablet Take 50 mg by mouth every morning. Active LORazepam (ATIVAN) 1 MG Tablet Take 1 mg by mouth daily as needed. Active escitalopram (LEXAPRO) 20 MG Tablet Take 20 mg by mouth daily. Active Omeprazole 20 MG Tablet Delayed Response Take 1 Tab by mouth daily. Active oxyCODONE (ROXICODONE) 5 MG Tablet Take 5 mg by mouth every 6 hours as needed for Pain. Active VENTOLIN HFA 108 (90 Base) MCG/ACT Aerosol Solution 06/08/2016 Active AEROSPAN 80 MCG/ACT Aerosol Solution 06/07/2016 Active Active Problems No known active problems Family History Medical History Relation Name Comments Cancer Maternal Grandmother Hypertension Mother Relation Name Status Comments Maternal Grandmother Mother Social History Tobacco Use Types Packs/Day Years Used Date Smoking Tobacco: Never Smokeless Tobacco: Never Tobacco Cessation:Counseling Given: No Alcohol Use Standard Drinks/Week Comments No 0 (1 standard drink = 0.6 oz pur e alcohol) Sexually Active Control Partners Comments Yes Female Sex and Gender Information Value Date Recorded Sex Assigned at Not on file 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 Gender Identity Not on file Sexual Orientation Not on file Last Filed Vital Signs Vital Sign Reading Time Taken Comments Blood Pressure 150/92 09/07/2016 2:19 PM CDT Pulse 114 09/07/2016 2:19 PM CDT Temperature 36.6 C (97.8 F) 09/07/2016 2:19 PM CDT Respiratory Rate 14 09/07/2016 2:19 PM CDT Oxygen Saturation 98% 09/07/2016 2:19 PM CDT Inhaled Oxygen Concentration - - Weight 83.9 kg (185 lb) 09/07/2016 2:19 PM CDT Height 177.8 cm (5' 10) 09/07/2016 2:19 PM CDT Body Mass Index 26.54 09/07/2016 2:19 PM CDT Plan of Treatment Health Maintenance Due Date Last Done Comments Hepatitis C Virus (HCV) Screening 1975 TdaP Immunization 1975 Hepatitis B Immunization (1 of 3 - 19+ 3-dose series) 07/03/1994 Cologuard 07/03/2020 Colonoscopy 07/03/2020 Colorectal Cancer Screening 07/03/2020 Immunochemical Fecal Occult Blood 07/03/2020 Influenza Immunization (#1) 2024 SARS-COV-2 Immunization ( season) 2024 Respiratory Syncytial Virus (RSV) Immunization (Adult) (1 - 1-dose 75+ series) 07/03/2050 Human Papillomavirus (HPV) Immunization Aged Out No longer eligible b ased on patient's age to complete this topic Meningococcal Immunization (ACWY) Aged Out No longer eligible based on patient's age to complete this topic Pneumococcal Immunization Combined Aged Out No longer eligible based on patient's age to complete this topic Rotavirus Immunization Aged Out No lo nger eligible based on patient's age to complete this topic Insurance MEDICAID [employer] Care Teams Doorperson Relationship Specialty Start Date End Date Raheem Perez DO [facility] [place] [address] PCP - General Internal Medicine 03/15/16
[2024-11-28 18:58] LABS: Alanine Aminotransferase 28 U/L (6-50); Albumin Level 4.4 g/dL (3.5-5.1); Alkaline Phosphatase 84 U/L (38-126); Anion Gap 9 mmol/L (4-12); Aspartate Amino Transferase 32 U/L (17-59); Bilirubin,Total 0.4 mg/dL (0.2-1.3); Blood Urea Nitrogen 13 mg/dL (9-20); Calcium 9.5 mg/dL (8.4-10.2); Carbon Dioxide 27 mmol/L (22-30); Chloride 102 mmol/L (98-107); Estimated Glomerular Filt Rate > 60; Glucose 98 mg/dL (65-110); Potassium 4.4 mmol/L (3.4-5.0); Sodium 138 mmol/L (137-145); Total Protein 8.1 g/dL (6.3-8.2)
== END 2024-11-28 10:37 | disposition home or self-care (01) ==
LOC: ANHGOSHLAB 10:37
PROVIDERS: PCP Internal Medicine; Visit Provider Clinical Nurse Specialist
DX: R74.01 Elevation of levels of liver transaminase levels (principal)
CPT/HCPCS: 36415; 80053